=== PATIENT | female | born 1950 | race Caucasian/White ===

== ENCOUNTER → 2017-01-01 | Outpatient (CLI) | payer MEDICARE ==
[~2017-01-01] MED LIST: ACET325T51 PO; ASPI-557 PO; CALC-1012 PO; CLIN300C86 PO; INSU100V13 SQ; MIDO5TAB PO; NITR0.4T39 SL; PANT40TA27 PO; POLY17PO2 PO; PRAS10TA5 PO; ROPI0.256 PO; ROSU10TA13 PO; [UNRECOGNIZED DRUG - CODE] INJ
== END ==
LOC: LABN 13:08
PROVIDERS: ATTEND Internal Medicine Endocrinology, Diabetes & Metabolism
DX: E10.65 Type 1 diabetes mellitus with hyperglycemia (principal)
CPT/HCPCS: 82985

== ENCOUNTER → 2017-02-12 | Outpatient (CLI) | payer MEDICARE ==
[2017-02-12 15:48] LABS: HCT - HEMATOCRIT 35.2 % (36-46); HGB - HEMOGLOBIN 11.3 GM/DL (12-16); MEAN CORPUSCULAR HGB 31.5 UUG (26-34); MEAN CORPUSCULAR HGB CONC(MCHC 32.1 GM/DL (31-37); MEAN CORPUSCULAR VOLUME 98.1 UM3 (80-100); MEAN PLATELET VOLUME 11.7 UM3 (9.4-12.4); RED BLOOD COUNT 3.59 M/MM3 (4.00-5.20); WBC - WHITE BLOOD COUNT 8.2 T/MM3 (4.5-11.0)
[2017-02-12 15:55] LABS: ANION GAP 20 MEQ/L (5-15); BUN/CREATININE RATIO 7 RATIO (6-26); CHLORIDE 96 MEQ/L (98-107); CO2 - CARBON DIOXIDE 20 MEQ/L (22-30); CREATININE 6.7 MG/DL (0.7-1.2); GLOMERULAR FILTRATION RATE 6; GLUCOSE 172 MG/DL (65-110); POTASSIUM 4.4 MEQ/L (3.6-5); SODIUM 136 MEQ/L (134-144)
[2017-02-12 16:14] LABS: ANISOCYTOSIS 1+; BAND NEUTROPHILS # 0.1 T/MM3; LYMPHOCYTES # (MANUAL) 0.3 T/MM3 (1-4.8); MONOCYTES # (MANUAL) 0.3 T/MM3 (0-0.8); NEUTROPHILS #(MANUAL)-ABSOLUTE 7.4 T/MM3 (1.8-7.7); POIKILOCYTOSIS 1+; REACTIVE LYMPHOCYTES # 0.1 T/MM3 (0-0); TOTAL CELLS COUNTED 100 %
== END ==
LOC: LABN 15:36
PROVIDERS: ATTEND Internal Medicine Cardiovascular Disease
DX: I25.10 Atherosclerotic heart disease of native coronary artery without angina pectoris (principal)
CPT/HCPCS: 80048; 85025